=== PATIENT | male | born 1965 | race American Indian/Alaskan Native ===

== ENCOUNTER 2021-12-11 09:42 | Emergency (ER) | payer SELFPAY ==
[2021-12-11 10:58] LABS: Basophils # (Auto) 0.2 K/mm3 (0.0-0.1); Basophils % (Auto) 2.2 % (0.0-1.8); Eosinophils % (Auto) 0.3 % (0.0-4.3); Hematocrit 45.3 % (35.5-45.6); Hemoglobin 16.4 gm/dl (11.8-15.2); Lymphocytes # (Auto) 1.7 K/mm3 (1.2-5.4); Mean Corpuscular HGB Conc 36 % (32-34); Mean Corpuscular Volume 97 fl (84-94); Monocytes # (Auto) 0.5 K/mm3 (0.0-0.8); Monocytes % (Auto) 4.9 % (0.0-7.3); Platelet Count 284 K/mm3 (140-440); Red Cell Distribution Width 12.8 % (13.2-15.2)
[2021-12-11 11:09] LABS: INR 0.87 (0.87-1.13)
[2021-12-11 11:47] LABS: Alanine Aminotransferase 15 units/L (7-56); Albumin 5.1 g/dL (3.9-5); Blood Urea Nitrogen 11 mg/dL (9-20); Calcium 10.2 mg/dL (8.4-10.2); Hemolysis Index 3
[2021-12-11 11:48] LABS: BUN/Creatinine Ratio 16; Bilirubin,Direct < 0.2 mg/dL (0-0.2)
[2021-12-11] MEDS ORDERED: SODIUM CHLORIDE 0.9% 1000 ML 1,000 ML IV ONE (15:37)
[2021-12-11] MEDS ORDERED: ONDANSETRON 4 MG/2 ML INJ IV ONE (16:00)
[2021-12-11] MEDS ORDERED: fentaNYL 100 MCG/2 ML INJ IV ONE (16:00)
--- NOTE | 2021-12-11 16:48 | Cat Scan Report ---
CT abdomen pelvis w con INDICATION / CLINICAL INFORMATION: Abdominal pain. TECHNIQUE: Axial CT images were obtained through the abdomen and pelvis after 100 cc of Omnipaque [address] scans at this location are performed using CT dose reduction for ALARA by means of automated exposure control. COMPARISON: None available. FINDINGS: Lung bases are clear. Liver is enlarged. There is intrahepatic and extra hepatic biliary dilatation. The common bile duct is dilated measuring 1.1 cm. There is abrupt narrowing of the common bile duct i n the pancreatic head. Gallbladder is distended without significant wall thickening. Small calcificat ions are seen in the pancreatic head. No discrete mass is identified. There is moderate peripancreati c inflammatory stranding of the pancreatic head. No organized peripancreatic collection. Prominent bu t nonenlarged peripancreatic and portacaval lymph nodes. There is mild pancreatic duct dilatation. Li rafael appears otherwise unremarkable. Spleen and adrenal glands are also unremarkable. Small right renal cyst. No acute abnormality of either kidney. No hydronephrosis. Bladder is unremark able. Small bowel is normal in caliber. There is colonic diverticulosis without diverticulitis. Zahida l appendix. No acute osseous findings. IMPRESSION: 1. Findings of acute on chronic pancreatitis involving the pancreatic head. No peripancreatic collect ion. Moderate intrahepatic and extrahepatic and pancreatic duct dilatation with abrupt narrowing of t he common bile duct and pancreatic duct in the head of the pancreas. No discrete mass is identified. This could be related to edema from acute pancreatitis or possibly chronic scarring from prior pancre atitis, though underlying mass cannot be excluded. Recommend further evaluation with ERCP or MRI/MRCP . 2. Other incidental findings as above. Signer Name: Rodney De La Torre MD Signed: 12/11/2021 4:43 PM Workstation Name: [id number]
[2021-12-11 17:30] LABS: Bilirubin,Urine NEG (Negative); Blood,Urine NEG (Negative); Color,Urine Yellow (Yellow); Mucus,Urine 3+ /HPF; Urobilinogen,Urine < 2.0 mg/dL (<2.0)
[2021-12-11 17:32] LABS: Amphetamine Screen,Urine Negative; Benzodiazepines Screen,Urine Negative; Methadone Screen,Urine Negative; Opiate Screen,Urine Negative
--- NOTE | 2021-12-11 17:50 | History and Physical Report ---
Medications and Allergies Allergies Allergy/AdvReac Type Severity Reaction Status Date / Time No Known Allergies Allergy Verified 12/11/21 15:26 Exam - Constitutional Vitals: Temp Pulse Resp BP Pulse Ox 98.8 F 103 H 18 170/114 99 12/11/21 10:05 12/11/21 10:05 12/11/21 10:05 12/11/21 10:05 12/11/21 10:05 Results - Labs CBC & Chem 7: 12/11/21 10:16 12/11/21 10:16 Labs: Abnormal lab results 12/11/21 12/11/21 12/11/21 Range/Units 10:16 10:16 16:38 Hgb 16.4 H (11.8-15.2) gm/dl MCV 97 H (84-94) fl MCH 35 H (28-32) pg MCHC 36 H (32-34) % RDW 12.8 L (13.2-15.2) % Baso % (Auto) 2.2 H (0.0-1.8) % Baso # (Auto) 0.2 H (0.0-0.1) K/mm3 Seg Neutrophils % 76.6 H (40.0-70.0) % Seg Neutrophils # 8.0 H (1.8-7.7) K/mm3 Creatinine 0.7 L (0.8-1.3) mg/dL Glucose 120 H (75-100) mg/dL Total Protein 9.2 H (6.3-8.2) g/dL Albumin 5.1 H (3.9-5) g/dL Lipase 134 H (13-60) units/L Urine WBC (Auto) 32.0 H (0.0-6.0) /HPF
--- NOTE | 2021-12-11 18:07 | Consultation ---
History of Present Illness - Reason for Consult Consult date: 12/11/21 Abdominal Pain Requesting physician: VISHAL PARK - History of Present Illness 56 YO Male with Chronic Pancreatitis, ETOH Dependence presents to ED for evaluation. Patient states that he has experienced abdominal pain over the past 1 day with persistent symptoms over the same timeframe. Patient states that pain is 5/10, constant, without exacerbating or alleviating factors. Patient transported to [facility] via private vehicle for further care and evaluation of the aforementioned symptoms. Patient seen and evaluated in the emergency department. All lab and imaging studies reviewed. Patient acknowledges alcohol ingestion over the past 24 hours. Upon further evaluation patient reports intermittent episodes of chronic pain over the past year. Patient has been counseled regarding alcohol cessation. Patient found to have mild elevation in lipase level. CT scan of the abdomen and pelvis reveals chronic pancreatitis. Patient treated with IV fluid resuscitation therapy. Patient medically optimized. Patient has Badin score of 1. Patient discharged home and instructed to follow-up with primary care physician in 3 to 5 days. Patient also instructed to follow-up with Alcoholics Anonymous meeting at discharge. Patient symptoms resolved with IV fluid resuscitation therapy. Past History Past Medical History: hypertension Past Surgical History: No surgical history, Other (Reviewed) Social history: single, smoking. denies: alcohol abuse Family history: hypertension Medications and Allergies Allergies Allergy/AdvReac Type Severity Reaction Status Date / Time No Known Allergies Allergy Verified 12/11/21 15:26 Home Medications Medication Instructions Recorded Confirmed Last Taken Type Folic Acid [Folvite] 1 mg PO QDAY #30 tablet 12/11/21 Unknown Rx Multivitamin Tab [Multiple Vitamin 1 each PO QDAY #30 tablet 12/11/21 Unknown Rx TAB (Theragran)] Ondansetron [Zofran Odt] 4 mg PO Q8HR #15 tab.rapdis 12/11/21 Unknown Rx Pantoprazole [Protonix TAB] 20 mg PO QDAY #30 tablet. 12/11/21 Unknown Rx Thiamine [Vitamin B-1] 100 mg PO QDAY #30 tablet 12/11/21 Unknown Rx Active Meds: Active Medications Sodium Chloride (Nacl 0.9% 1000 Ml) 3,000 mls @ 999 mls/hr IV BOLUS ONE Stop: 12/11/21 22:00 Pantoprazole Sodium (Pantoprazole 40 Mg Inj) 40 mg IV ONCE PALLAVI Stop: 12/12/21 18:59 Review of Systems Constitutional: no weight loss, no weight gain, no fever, no chills, no anorexia, no fatigue, no weakness, no malaise, no lethargy Ears, nose, mouth and throat: no ear pain, no tinnitis, no decreased hearing, no nose pain, no nasal congestion, no nasal discharge Cardiovascular: no chest pain, no orthopnea, no palpitations, no rapid/irregular heart beat Respiratory: no cough, no cough with sputum, no shortness of breath Gastrointestinal: abdominal pain, no nausea, no vomiting, no diarrhea, no constipation, no loss of appetite, no early satiety, no indigestion, no excessive gas, no lactose intolerance Genitourinary Male: no hematuria, no flank pain, no discharge, no urinary frequency, no urinary hesitancy Rectal: no pain, no incontinence Musculoskeletal: no neck stiffness, no neck pain, no shooting arm pain, no arm numbness/tingling, no low back pain Integumentary: no rash, no pruritis, no redness, no sores, no wounds Neurological: no head injury, no transient paralysis, no paralysis, no weakness, no parathesias, no numbness, no tingling Psychiatric: no anxiety, no memory loss, no change in sleep habits, no sleep disturbances, no insomnia, no hypersomnia, no change in appetite, no change in libido Endocrine: no cold intolerance, no heat intolerance, no polyphagia, no excessive thirst, no polydipsia, no polyuria, no nocturia Hematologic/Lymphatic: no easy bruising, no easy bleeding Allergic/Immunologic: no urticaria, no allergic rhinitis, no wheezing Exam - Constitutional Vitals: Temp Pulse Resp BP Pulse Ox 98.8 F 103 H 18 170/114 99 12/11/21 10:05 12/11/21 10:05 12/11/21 10:05 12/11/21 10:05 12/11/21 10:05 General appearance: Present: no acute distress - EENT Eyes: Present: PERRL ENT: hearing intact, clear oral mucosa - Neck Neck: Present: supple, normal ROM - Respiratory Respiratory effort: normal Respiratory: bilateral: CTA - Cardiovascular Heart Sounds: Present: S1 & S2. Absent: rub, click - Extremities Extremities: pulses symmetrical, No edema Peripheral Pulses: within normal limits - Abdominal General gastrointestinal: Present: soft, non-tender, non-distended, normal bowel sounds. Absent: hepatomegaly, splenomegaly, mass, hernia Male genitourinary: Present: normal - Integumentary Integumentary: Present: clear, warm, dry - Musculoskeletal Musculoskeletal: gait normal, strength equal bilaterally - Psychiatric Psychiatric: appropriate mood/affect, intact judgment & insight - Neurologic Neurologic: CNII-XII intact, moves all extremities Results - Labs CBC & Chem 7: 12/11/21 10:16 12/11/21 10:16 Labs: Abnormal lab results 12/11/21 12/11/21 12/11/21 Range/Units 10:16 10:16 16:38 Hgb 16.4 H (11.8-15.2) gm/dl MCV 97 H (84-94) fl MCH 35 H (28-32) pg MCHC 36 H (32-34) % RDW 12.8 L (13.2-15.2) % Baso % (Auto) 2.2 H (0.0-1.8) % Baso # (Auto) 0.2 H (0.0-0.1) K/mm3 Seg Neutrophils % 76.6 H (40.0-70.0) % Seg Neutrophils # 8.0 H (1.8-7.7) K/mm3 Creatinine 0.7 L (0.8-1.3) mg/dL Glucose 120 H (75-100) mg/dL Total Protein 9.2 H (6.3-8.2) g/dL Albumin 5.1 H (3.9-5) g/dL Lipase 134 H (13-60) units/L Urine WBC (Auto) 32.0 H (0.0-6.0) /HPF Assessment and Plan - Patient Problems (1) Alcohol dependence Current Visit: Yes Status: Acute Qualifiers: Substance use status: uncomplicated Qualified Code(s): F10.20 - Alcohol dependence, uncomplicated Plan to address problem: Thiamine, folic acid, multivitamin daily, outpatient follow-up with Alcoholics Anonymous at discharge, alcohol cessation counseling. Behavior change counseling, +15 minutes. (2) Chronic pancreatitis Current Visit: Yes Status: Acute Qualifiers: Pancreatitis type: alcohol induced Qualified Code(s): K86.0 - Alcohol- induced chronic pancreatitis Plan to address problem: Supportive care, avoid greasy foods, clear liquid diet, advance as tolerated over the next 72 hours. Outpatient follow-up with primary care physician. Outpatient GI follow-up as needed. (3) Preventative health care Current Visit: Yes Status: Acute Plan to address problem: Patient counseled regarding risk factor reduction, alcohol cessation, patient instructed to follow-up with primary care physician for all age and risk factor appropriate screening test. +30 minutes.
--- NOTE | 2021-12-11 18:13 | Emergency Department Report ---
ED Abdominal Pain HPI - General Chief Complaint: Abdominal Pain Stated Complaint: ABD PAIN/PANCREATITIS Time Seen by Provider: 12/11/21 15:35 Source: EMS Mode of arrival: Stretcher Limitations: No Limitations - History of Present Illness Initial Comments: Abdominal Pain, hx of pancreartitis x1 day daily alcohol abuse, hitory of kristy same MD Complaint: abdominal pain -: Gradual, days(s) Location: periumbilical, epigastric Severity scale (0 -10): 9 Quality: aching Consistency: constant Improves With: eating Worsens With: nothing Associated Symptoms: nausea, vomiting. denies: denies other symptoms - Related Data Previous Rx's Medication Instructions Recorded Last Taken Type Folic Acid [Folvite] 1 mg PO QDAY #30 tablet 12/11/21 Unknown Rx Multivitamin Tab [Multiple Vitamin 1 each PO QDAY #30 tablet 12/11/21 Unknown Rx TAB (Theragran)] Ondansetron [Zofran Odt] 4 mg PO Q8HR #15 tab.rapbeth 12/11/21 Unknown Rx Pantoprazole [Protonix TAB] 20 mg PO QDAY #30 tablet. 12/11/21 Unknown Rx Thiamine [Vitamin B-1] 100 mg PO QDAY #30 tablet 12/11/21 Unknown Rx Allergies Allergy/AdvReac Type Severity Reaction Status Date / Time No Known Allergies Allergy Verified 12/11/21 15:26 ED Review of Systems ROS: Stated complaint: ABD PAIN/PANCREATITIS Other details as noted in HPI Constitutional: denies: chills, fever Eyes: denies: eye pain, eye discharge, vision change ENT: denies: ear pain, throat pain Respiratory: denies: cough, shortness of breath, wheezing Cardiovascular: denies: chest pain, palpitations Endocrine: no symptoms reported Gastrointestinal: denies: abdominal pain, nausea, diarrhea Genitourinary: denies: urgency, dysuria Musculoskeletal: denies: back pain, joint swelling, arthralgia Skin: denies: rash, lesions Neurological: denies: headache, weakness, paresthesias Psychiatric: denies: anxiety, depression Hematological/Lymphatic: denies: easy bleeding, easy bruising ED Past Medical Hx - Past Medical History Hx Hypertension: No Hx CVA: No - Social History Smoking Status: Never Smoker Substance Use Type: None - Medications Home Medications: Home Medications Medication Instructions Recorded Confirmed Last Taken Type Folic Acid [Folvite] 1 mg PO QDAY #30 tablet 12/11/21 Unknown Rx Multivitamin Tab [Multiple Vitamin 1 each PO QDAY #30 tablet 12/11/21 Unknown Rx TAB (Theragran)] Ondansetron [Zofran Odt] 4 mg PO Q8HR #15 tab.le 12/11/21 Unknown Rx Pantoprazole [Protonix TAB] 20 mg PO QDAY #30 tablet. 12/11/21 Unknown Rx Thiamine [Vitamin B-1] 100 mg PO QDAY #30 tablet 12/11/21 Unknown Rx ED Physical Exam - General Limitations: No Limitations General appearance: alert, in no apparent distress - Head Head exam: Present: atraumatic, normocephalic - Eye Eye exam: Present: normal appearance - ENT ENT exam: Present: mucous membranes moist - Neck Neck exam: Present: normal inspection - Respiratory Respiratory exam: Present: normal lung sounds bilaterally. Absent: respiratory distress - Cardiovascular Cardiovascular Exam: Present: regular rate, normal rhythm. Absent: systolic murmur, diastolic murmur, rubs, gallop - GI/Abdominal GI/Abdominal exam: Present: tenderness, normal bowel sounds - Rectal Rectal exam: Present: deferred - Extremities Exam Extremities exam: Present: normal inspection - Back Exam Back exam: Present: normal inspection - Neurological Exam Neurological exam: Present: alert, oriented X3 - Psychiatric Psychiatric exam: Present: normal affect, normal mood - Skin Skin exam: Present: warm, dry, intact, normal color. Absent: rash ED Course Vital Signs 12/11/21 10:05 Temperature 98.8 F Pulse Rate 103 H Respiratory 18 Rate Blood Pressure 170/114 O2 Sat by Pulse 99 Oximetry ED Medical Decision Making - Lab Data Result diagrams: 12/11/21 10:16 12/11/21 10:16 - Radiology Data Radiology results: report reviewed, image reviewed - Medical Decision Making work up shwoed elevated lipase but less than 3 times, CT scan shwoed acute on chronic pancreatitis , NPO pain meds [facility] will admit Critical care attestation.: If time is entered above; I have spent that time in minutes in the direct care of this critically ill patient, excluding procedure time. ED Disposition Clinical Impression: Acute pancreatitis, Alcohol abuse Disposition: 09 ADMITTED INPATIENT Is pt being admited?: Yes Does the pt Need Aspirin: No Condition: Stable Prescriptions: Folic Acid [Folvite] 1 mg PO QDAY #30 tablet Multivitamin Tab [Multiple Vitamin TAB (Theragran)] 1 each PO QDAY #30 tablet Pantoprazole [Protonix TAB] 20 mg PO QDAY #30 tablet. Thiamine [Vitamin B-1] 100 mg PO QDAY #30 tablet Ondansetron [Zofran Odt] 4 mg PO Q8HR #15 tab.rapdis Referrals: SVETLANA GIBBONS MD [Primary Care Provider] - 7 Days
[2021-12-11 18:28] LABS: Cannabinoid Screen,Urine Positive; Cocaine Screen,Urine Positive
[2021-12-11] MEDS ORDERED: PANTOPRAZOLE 40 MG INJ IV SCH (19:00)
[2021-12-11] MEDS ORDERED: SODIUM CHLORIDE 0.9% 1000 ML 3,000 ML IV ONE (19:00)
[2021-12-11] MEDS ORDERED: hydrALAZINE 20 MG/1 ML INJ IV ONE (19:00)
[2021-12-11 19:29] VITALS: BP 138/102
== END 2021-12-11 19:43 | disposition admitted as inpatient to this hospital (09) ==
LOC: ED 09:42
DX: K85.90 Acute pancreatitis without necrosis or infection, unspecified (principal); F10.10 Alcohol abuse, uncomplicated; Z79.899 Other long term (current) drug therapy
CPT/HCPCS: 36415; 74177; 80048; 80076; 80307; 81001; 83615; 83690; 85025; 85610; 87086; 93005; 96361; 96374; 96375; 99284; C9113; J0360; J2405; J3010; J7030; Q9967; 80320; G0480